=== PATIENT | male | born 1935 | race Caucasian/White ===

== ENCOUNTER 2017-02-02 15:29 | Emergency (ER) | payer MEDICARE, OTHER ==
[~2017-02-02 15:29] MED LIST: ENSURE ORIGINA237 ML PO
== END 2017-02-02 18:47 | disposition home or self-care (01) ==
LOC: ER1 15:29
DX: S61.411A Laceration without foreign body of right hand, initial encounter (principal); I25.2 Old myocardial infarction; F41.9 Anxiety disorder, unspecified; F17.210 Nicotine dependence, cigarettes, uncomplicated; W01.198A Fall on same level from slipping, tripping and stumbling with subsequent striking against other object, initial encounter; Y92.009 Unspecified place in unspecified non-institutional (private) residence as the place of occurrence of the external cause
CPT/HCPCS: 12001; 99283

== ENCOUNTER 2017-03-15 20:00 | Observation (INO) | payer MEDICARE, OTHER ==
[~2017-03-15] VITALS: Ht 160 cm; Wt 59.5 kg
[2017-03-15 21:19] LABS: HEMOGLOBIN 10.9 gm/dl (14.0-17.5); RED BLOOD COUNT 4.59 M/UL (4.20-5.50); WHITE BLOOD COUNT 7.1 K/UL (4.5-11.0)
[2017-03-15 21:35] LABS: BUN/CREATININE RATIO 11 (0-10)
[2017-03-16] MEDS ORDERED: ASPIRIN CHEWABL81 MG PO (13:24)
== END 2017-03-16 12:57 | disposition home or self-care (01) ==
LOC: ER1 20:00 → M/S 22:20 → ZEROF 22:20 → M/S 03-16 06:01
PROVIDERS: Physician Assistant; ADMIT Internal Medicine
DX: R07.9 Chest pain, unspecified (principal); I25.10 Atherosclerotic heart disease of native coronary artery without angina pectoris; I10 Essential (primary) hypertension; E78.5 Hyperlipidemia, unspecified; F41.9 Anxiety disorder, unspecified; D50.9 Iron deficiency anemia, unspecified; F17.210 Nicotine dependence, cigarettes, uncomplicated; F10.129 Alcohol abuse with intoxication, unspecified; Z95.5 Presence of coronary angioplasty implant and graft
CPT/HCPCS: 36415; 71010; 80053; 80061; 82550; 82553; 82728; 83540; 83550; 83735; 83874; 84484; 85025; 93005; 96365; 99285; G0378; G0480; J3411; J3475